=== PATIENT | female | born 1935 | race Caucasian/White ===

== ENCOUNTER 2017-05-08 10:40 | Emergency (ER) | payer MEDICARE, BC ==
[~2017-05-08] VITALS: Ht 157.5 cm; Wt 54.4 kg
--- NOTE | 2017-05-08 11:56 | Diagnostic Imaging Report ---
PROCEDURE:KNEE LEFT THREE VIEWS TECHNIQUE:AP, lateral and oblique views left knee INDICATION:Left knee pain status post fall COMPARISON:None. FINDINGS: The left knee and image regional skeleton are intact and in anatomic alignment. Joint space is maintained. No effusion. Normal regional soft tissues. CONCLUSION: No evidence of acute traumatic injury. Dictated by: Levi Rios M.D. on 05/08/2017 at 12:04 Electronically approved by: Levi Rios M.D. on 05/08/2017 at 12:04
[2017-05-08 16:17] VITALS: BP 152/67
== END 2017-05-08 16:10 | disposition home or self-care (01) ==
LOC: ER 10:40
DX: S80.212A Abrasion, left knee, initial encounter (principal); W01.0XXA Fall on same level from slipping, tripping and stumbling without subsequent striking against object, initial encounter; Y93.01 Activity, walking, marching and hiking; Y92.238 Other place in hospital as the place of occurrence of the external cause; Z95.5 Presence of coronary angioplasty implant and graft
CPT/HCPCS: 99283

== ENCOUNTER → 2019-10-12 | Outpatient (CLI) | payer MEDICARE, BC ==
--- NOTE | 2019-10-12 10:31 | Diagnostic Imaging Report ---
Renal ultrasound Comparison: None Clinical History: Chronic kidney disease Technique: Sonographic evaluation of the kidneys was performed. Multiple images were submitted for interpretation, using a low-frequency curved transducer. Right kidney: The kidney measures 9.3 x 3.4 x 3.7 cm. The cortical echogenicity is normal. The cortex measures 1.1 cm. There is no evidence of a focal mass. There is no evidence of hydronephrosis. There is no evidence of a shadowing stone. There is no evidence of a cyst. There is no evidence of a perinephric fluid collection. Flow is visualized to the right kidney. There is a focal echogenic spot in the anterior mid cortex of the right kidney at the upper pole. This could represent a small focus of dystrophic calcification or a small angiomyolipoma. Left kidney: The kidney measures 8.9 x 3.9 x 4.2 cm. The cortical echogenicity is within normal limits. The cortex measures 1.2 cm. There is no evidence of a focal mass. There is no evidence of hydronephrosis. There is no evidence of a shadowing stone. There is no evidence of a cyst. There is no evidence of a perinephric fluid collection. Flow is visualized to the left kidney. Survey images of the bladder demonstrate no abnormality. Impression: Bilateral small kidneys without hydronephrosis, stone, mass or cyst. The findings are consistent with medical renal disease. Signed by: Rah Horowitz MD on 10/12/2019 10:27 AM
== END ==
LOC: US 08:08
PROVIDERS: ATTEND Internal Medicine
DX: N18.9 Chronic kidney disease, unspecified (principal)
CPT/HCPCS: 76770

== ENCOUNTER 2020-09-13 14:07 | Outpatient (RCR) | payer MEDICARE, BC | END 2020-09-15 | LOC: OT 14:07 | PROVIDERS: ATTEND Specialist | DX: M75.111 Incomplete rotator cuff tear or rupture of right shoulder, not specified as traumatic (principal); M19.011 Primary osteoarthritis, right shoulder ==

== ENCOUNTER 2020-10-03 13:54 | Outpatient (RCR) | payer MEDICARE, BC | END 2020-10-16 | LOC: OT 13:54 | PROVIDERS: ATTEND Specialist ==

== ENCOUNTER → 2020-12-20 | Outpatient (CLI) | payer MEDICARE, BC | LOC: MRI 09:30 | PROVIDERS: ATTEND Internal Medicine | DX: R51.9 Headache, unspecified (principal) | CPT/HCPCS: 70551 ==

== ENCOUNTER → 2022-06-05 | Day surgery (SDC) | payer MEDICARE, BC ==
[2022-06-03 10:43] LABS: BASOPHILS # (AUTO) 0.1 (0.0-0.1); BASOPHILS % 1.5 % (0.0-1.0); EOSINOPHILS # (AUTO) 0.5 (0.0-0.4); HEMATOCRIT 36.3 % (34.2-44.1); HEMOGLOBIN 10.8 g/dL (12.0-16.0); LYMPHOCYTES # (AUTO) 1.7 (1.0-3.2); MEAN CORPUSCULAR HEMOGLOBIN 28.5 pg (28-32); MEAN CORPUSCULAR HGB CONC 29.8 g/dL (31-35); MEAN CORPUSCULAR VOLUME 95.8 fL (81-99); MONOCYTES # (AUTO) 0.7 (0.2-0.8); NEUTROPHILS # (AUTO) 5.1 (2.1-6.9); NEUTROPHILS % 62.1 % (38.7-80.0); PLATELET COUNT 362 x10e3/uL (140-360); RED BLOOD COUNT 3.79 x10e6/uL (3.6-5.1); RED CELL DISTRIBUTION WIDTH 16.4 % (11.7-14.4)
[2022-06-03 10:54] LABS: INR 0.93; PROTHROMBIN TIME 12.7 seconds (11.9-14.5)
[2022-06-03 10:55] LABS: PARTIAL THROMBOPLASTIN TIME 31.9 seconds (23.8-35.5)
[2022-06-03 10:59] LABS: ANION GAP 15.5 mmol/L (8-16); CALCIUM 9.3 mg/dL (8.4-10.2); CREATININE, SERUM 1.04 mg/dL (0.57-1.11); POTASSIUM 4.5 mmol/L (3.5-5.1)
[~2022-06-05] MED LIST: AMIODARONE HCL200 MG PO; BALSALAZIDE PO; CLOPIDOGREL75 MG PO; ELIQUIS2.5 MG PO; ETOMIDATE 2 MG/ML 10 ML INJ IV ONE; LIDOCAINE HCL 2% LOCAL INJ 5 ML SDV VIAL INJ ONE; METOPROLOL SUCC25 MG PO; MULTI-VITAMIN1 EACH PO; PRAVASTATIN SOD40 MG PO; PROPOFOL IV EMULSION 10 MG/ML 20 ML VIAL ONE; PROPOFOL IV EMULSION 50 ML IV ONE; SUGAMMADEX SODIUM 200 MG/2 ML VIAL IV ONE; VITAMIN D350 MCG PO
[2022-06-05 09:30] VITALS: BP 128/68
== END | disposition home or self-care (01) ==
LOC: OR 06:23
PROVIDERS: ATTEND Internal Medicine Gastroenterology
DX: K29.50 Unspecified chronic gastritis without bleeding (principal); K51.90 Ulcerative colitis, unspecified, without complications; K22.10 Ulcer of esophagus without bleeding; K44.9 Diaphragmatic hernia without obstruction or gangrene; K63.89 Other specified diseases of intestine; K64.8 Other hemorrhoids; I12.9 Hypertensive chronic kidney disease with stage 1 through stage 4 chronic kidney disease, or unspecified chronic kidney disease; N18.9 Chronic kidney disease, unspecified; I25.10 Atherosclerotic heart disease of native coronary artery without angina pectoris; I25.2 Old myocardial infarction; I48.91 Unspecified atrial fibrillation; E78.5 Hyperlipidemia, unspecified; M81.0 Age-related osteoporosis without current pathological fracture; Z01.810 Encounter for preprocedural cardiovascular examination; Z01.812 Encounter for preprocedural laboratory examination; Z79.02 Long term (current) use of antithrombotics/antiplatelets; Z79.899 Other long term (current) drug therapy; Z95.5 Presence of coronary angioplasty implant and graft
CPT/HCPCS: 36415 ×2; 43239; 45380; 80048; 83630; 83993; 85025; 85610; 85651; 85730; 86140; 86256; 86671; 87045; 87177; 87324; 87328; 87449; 88305; 88342; 93005; C9113; J2001; J2704 ×2; 45378; 88304; 88312